=== PATIENT | female | born 1950 | race Caucasian/White ===

== ENCOUNTER → 2018-12-11 | Outpatient (CLI) | payer OTHER, MEDICARE ==
[~2018-12-11] MED LIST: BENADRYL25 MG PO; LISI5 PO; LOSHYD PO; METO50 PO; Pepcid20 MG PO; Prednisone20 MG PO
[2018-12-12 13:37] LABS: Stool Occult Bld Immuno 1 Negative (NEGATIVE)
== END | disposition home or self-care (01) ==
LOC: LAB SHORT 12:06 → LAB 12:06 → LAB FUT 11-18 09:00
PROVIDERS: Internal Medicine
DX: Z12.11 Encounter for screening for malignant neoplasm of colon (principal)
CPT/HCPCS: G0328

== ENCOUNTER 2019-07-17 07:26 | Day surgery (SDC) | payer OTHER, MEDICARE ==
[~2019-07-17 07:26] MED LIST changes: +ACET325 PO; +DOCU100 PO; +FAMO40; +FURO20; +Florastor250 MG PO; +GAVILAX17 GM PO; +HYDR1TAB94 PO; +LEVO750; +LIDO700A20 TOP; +METO25 PO; +ONDA4 PO; +Oyster Shell C500 MG; +XARELTO15 MG PO
== END 2019-07-17 11:55 | disposition home or self-care (01) ==
LOC: ATC 07:26
PROC: 30243N1 Transfusion of Nonautologous Red Blood Cells into Central Vein, Percutaneous Approach (ICD-10-PCS; principal; 2019-07-17)
DX: D64.9 Anemia, unspecified (principal); C25.0 Malignant neoplasm of head of pancreas; C78.7 Secondary malignant neoplasm of liver and intrahepatic bile duct; I10 Essential (primary) hypertension; M41.9 Scoliosis, unspecified; Z87.891 Personal history of nicotine dependence; Z86.718 Personal history of other venous thrombosis and embolism; Z86.711 Personal history of pulmonary embolism; Z88.0 Allergy status to penicillin; Z88.8 Allergy status to other drugs, medicaments and biological substances; Z79.01 Long term (current) use of anticoagulants; Z79.899 Other long term (current) drug therapy
CPT/HCPCS: 36415; 36430; 86850; 86900; 86901; 86923; J7050; P9016

== ENCOUNTER 2019-07-18 17:37 | Inpatient (IN) | payer OTHER, MEDICARE ==
[~2019-07-18] VITALS: Ht 154.9 cm; Wt 48.5 kg
[2019-07-18 18:12] LABS: BASOPHILS ABSOLUTE AUTO 0.04 K/mm3 (0.00-0.23); BASOPHILS PERCENT AUTO 0 % (0-2); EOSINOPHILS ABSOLUTE AUTO 0.13 K/mm3 (0.00-0.68); EOSINOPHILS PERCENT AUTO 1 % (0-6); Hematocrit 33.9 % (33.0-51.0); Hemoglobin 10.5 g/dL (11.5-16.0); IMMATURE GRAN ABSOLUTE AUTO 0.47 K/mm3 (0.00-0.10); IMMATURE GRAN PERCENT AUTO 2 % (0-1); LYMPHOCYTES ABSOLUTE AUTO 1.01 K/mm3 (0.84-5.20); LYMPHOCYTES PERCENT AUTO 5 % (21-46); MONOCYTES ABSOLUTE AUTO 1.83 K/mm3 (0.16-1.47); MONOCYTES PERCENT AUTO 9 % (4-13); Mean Corpuscular HGB 29.7 pg (26.0-34.0); Mean Platelet Volume 10.1 fL (9.1-12.4); NEUTROPHILS ABSOLUTE AUTO 17.38 K/mm3 (1.96-9.15); NEUTROPHILS PERCENT AUTO 83 % (41-73); NRBC ABSOLUTE 0.02 K/mm3 (0.00-0.02); NRBC Auto 0.1 /100 WBC (0.0-0.2); Platelet Count 421 K/mm3 (150-400); RDW Coefficient Variation 18.9 % (11.7-14.2); RDW Standard Deviation 62.2 fL (35.1-46.3); Red Blood Cell Count 3.53 M/mm3 (3.80-5.20); White Blood Cell Count 20.86 K/mm3 (4.00-11.30)
[2019-07-18 18:15] LABS: Mean Corpuscular Volume 96 fL (80-100)
[2019-07-18 18:29] LABS: Albumin/Globulin Ratio 0.5 (0.8-1.8); Bilirubin, Total 0.9 mg/dL (0.1-1.0); Bun/Creatinine Ratio 21.6 (12.0-20.0); Calcium, Blood 8.9 mg/dL (8.5-10.1); Creatinine, Blood 1.34 mg/dL (0.40-1.00); Potassium, Blood 3.5 mmol/L (3.5-5.5)
[2019-07-18 22:24] LABS: International Normalized Ratio 1.37; Prothrombin Time Results 14.1 Sec (9.7-11.5)
[2019-07-19 04:48] LABS: Hematocrit 24.4 % (33.0-51.0); Hemoglobin 7.5 g/dL (11.5-16.0); Mean Corpuscular HGB 30.4 pg (26.0-34.0); Mean Corpuscular HGB Conc 30.7 g/dL (31.5-36.5); Mean Corpuscular Volume 99 fL (80-100); Mean Platelet Volume 10.5 fL (9.1-12.4); NRBC ABSOLUTE 0.02 K/mm3 (0.00-0.02); NRBC Auto 0.1 /100 WBC (0.0-0.2); Platelet Count 264 K/mm3 (150-400); RDW Coefficient Variation 18.4 % (11.7-14.2); RDW Standard Deviation 62.9 fL (35.1-46.3); Red Blood Cell Count 2.47 M/mm3 (3.80-5.20); White Blood Cell Count 17.74 K/mm3 (4.00-11.30)
[2019-07-19 05:10] LABS: Albumin/Globulin Ratio 0.7 (0.8-1.8); Bilirubin, Total 0.7 mg/dL (0.1-1.0); Bun/Creatinine Ratio 22.1 (12.0-20.0); Creatinine, Blood 1.31 mg/dL (0.40-1.00); Globulin, Blood 2.9 g/dL (2.2-4.0); Total Protein, Blood 4.9 g/dL (6.4-8.2)
--- NOTE | 2019-07-19 07:18 | NUR ---
Patient slept intermittently overnight. She had 2 dark-colored liquid emesis, and PRN nausea medication was utilized. Monitoring H&H for acute changes. Blood ordered for low hgb this AM.
--- NOTE | 2019-07-19 07:58 | NUR ---
NURSE IN TO ASSESS PATIENT AT 0735. VS MEASURED IN PREP FOR BLOOD ADMINISTRATION PER ORDER. PT HAS CRACKLES IN BASES AND 4+ PITTING EDEMA IN HER BLE. CHARGE NURSE NOTIFIED OF VS AND FINDINGS. DR PLAZA CALLED AT 0757 AND NOTIFIED OF DROP IN HBG AND HCT AND ASSESSMENT FINDINGS. DR PLAZA REVIEWING CHART AT THIS TIME.
[2019-07-19 08:13] LABS: Source, Urine Clean Catch
[2019-07-19 08:15] LABS: Bilirubin, Urine Neg (Neg); Blood, Urine Neg (Neg); Glucose Qualitative, Urine Neg (Neg); Ketones, Urine 1+ (Neg); Leukocyte Esterase, Urine Neg (Neg); Nitrite, Urine Neg (Neg); Protein, Urine 2+ (Neg); Urobilinogen, Urine NORM (Normal)
[2019-07-19 08:18] LABS: Appearance, Urine Clear (Clear); Color, Urine Yellow (P-Yellow)
[2019-07-19 08:25] LABS: Bacteria Mod /hpf; Red Blood Cells, Urine Not Seen /hpf (0-2); Renal Epithelial Rare /hpf (0-Rare); Squamous Epithelial Cells Many /hpf (Few); Transitional Epithelial Cells Few /hpf (0-Rare); White Blood Cells, Urine Rare /hpf (0-5)
[2019-07-19 08:26] LABS: Amorphous Light (0-Heavy); Granular Casts 0-2 /lpf (0)
[2019-07-19 09:58] LABS: Hematocrit 24.4 % (33.0-51.0); Hemoglobin 7.5 g/dL (11.5-16.0)
--- NOTE | 2019-07-19 12:58 | NUR ---
Initial Visit: Palliative Care Consult for End Stage and Comfort Care. Spoke with Dr Callejas and discussed case. Pt has metastic pancreatic cancer with uncontroled pain. Pt placed on comfort care and plan is start pain pump for pain management. Fentanyl Patch ordered and plan is to hopefully wean Pt off pump once long acting pain medication becomes effectice. Pt is A&O and reports 6/10 pain in her abdomen. Pt reports mild anxiety and mild dyspnea. Engaged in therapeutic discussion regarding goals of care. Pt reports living at home with her and son. Listened as she reports not wanting to pursue any cancer treatments. Educated on hospice philsosphy wit V/U made by Pt. Discussed the possibility of future need with assistance of care. Discussed speaking with friends and family to help with care if needed. Discussed considering in home caregivers. Pt appears anxious throughout the visit and she reports significant heart burn. Palliative Care will F/U with Pt when is present. Ended visit to allow Pt to rest. Gave Pt brochures for different hospice agencies. Placed order for Protonix 40mg IV now and Protonix 40mg BID and D/C Protonix AB per V/O from Dr Callejas. Spoke with bedside CHENCHO Cordova and discussed case. Will place hospice referral and Palliative Care will remain available for symptom management.
--- NOTE | 2019-07-19 18:44 | NUR ---
SHIFT SUMMARY PT TRANSITIONED TO COMFORT CARE THIS SHIFT. PRIOR TO THAT PT RECIEVED 1 UNIT PRBC PER ORDER. OVEN DUMPER INFUSING PER ORDERS. SET UP AND VERIFIED WITH CHARGE NURSE. PT UP WITH 1 ASSIST. PT STATED PAIN IS WELL CONTROLLED AT THIS TIME. PT TOLERATING POPSICLES AND ICE BUT STATES THAT SHE IS "BURPING UP BILE." BED IN LOW POSITION, CALL LIGHT WITHIN REACH.
--- NOTE | 2019-07-19 20:04 | NUR ---
Patient appears to be sleeping comfortably at this time.
--- NOTE | 2019-07-19 23:06 | NUR ---
Patient states she has no pain at the moment. 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
--- NOTE | 2019-07-20 05:04 | NUR ---
Shift Summary Patient slept well overnight. She requested nausea medication one time, and this was effective. No emesis or abdominal pain overnight. SHOER running at basal rate. She has not pushed the button for additional pain control. She remians A&O, pleasant and cooperative.
--- NOTE | 2019-07-20 05:23 | NUR ---
Patient states she is comfortable. She is able to make needs known, and states she will request help if needed. Pain is well controlled with SALES AND EVENTS COORDINATOR.
--- NOTE | 2019-07-20 05:24 | NUR ---
PRN zofran was effective for nausea
--- NOTE | 2019-07-20 07:41 | NUR ---
SHOTGUN SHELL REPRINTING UNIT OPERATOR INFUSING. DENIES ANY PAIN AT THIS TIME. ALERT. [facility]
--- NOTE | 2019-07-20 07:56 | NUR ---
Patient denies pain at this time. Ice chips provided per Pt request.
--- NOTE | 2019-07-20 16:06 | NUR ---
Spiritual Care inital note: Mrs. Meadows appears frail and very weak. She awakend easily to voice, but could not stay awake. She wanted prayer and I happily complied. Her spouse, Jose was at bedside. He appeared guarded and protective of Erica. He dimissed me immediately after prayer. I will remain available.
--- NOTE | 2019-07-20 17:52 | NUR ---
PATIENT ALERT, BUT FORGETFUL. MOVES OFTEN IN BED, SO DOES NOT HAVE TO BE TURNED. USES BAILIFF AND HAS DENIED PAIN TO THIS RN. MEDICATED FOR NAUSEA. DISCUSSED BLOOD TRANSFUSION WITH PATIENT AND AT THIS TIME HAS NOT MADE A DECISION TO WHETHER SHE WANTS TRANSFUSION. WAS ADVISED MAY HELP HER BREATHING. OXYGEN ON INTERMITTENTLY. COOPERATIVE. IN OFTEN.SEEMS OVERWHELMED. WAS IN AND ADVISED PATIENT TO BE ON HOSPICE. AWARE OF THIS. PALLIATIVE CARE AND CARE MANAGEMENT ALSO AWARE. BEBO.
--- NOTE | 2019-07-20 21:21 | NUR ---
pt resting comfortably with in the room after requested roxanol. no other requests or complaints at this time.
--- NOTE | 2019-07-20 22:11 | NUR ---
PT AWAKE AGAIN. NO NEEDS AT THIS TIME. ONLY REQUEST WAS ICE CHIPS.
--- NOTE | 2019-07-21 02:38 | NUR ---
PT ASKED FOR PAIN MEDICATION TO MAKE HER COMFORTABLE. PT ENCOURAGED TO PRESS METAL BUMPER BUTTON FOR PAIN MEDICATION. PT INSISTED THAT SHE HAD BEEN BUT METAL BUMPER READ 0 ATTEMPTS AND 0 DELIVERIES. EDUCATED PT AND SHE PRESSED HER BUTTON WHILE RN IN ROOM AND IT REGISTERED THE 1 ATTEMPT. PT ENCOURAGED TO USE HER METAL BUMPER.
--- NOTE | 2019-07-21 05:42 | NUR ---
SHIFT SUMMARY PT DID NOT SLEEP WELL OVERNIGHT. AOX4 WITH INTERMITTENT CONFUSION. ROXANOL GIVEN @ 2049 AND PT SAID SHE DID NOT LIKE HOW IT MADE HER FEEL, DISLIKED SIDE EFFECTS. O2 NEEDED, PT WAS ON RA MOST OF THE NIGHT. MEDIPORT INFUSING. SLOOP CAPTAIN EDUCATION PROVIDED, PT C/O PAIN BUT HAD NOT BEEN PRESSING HER SLOOP CAPTAIN BUTTON. AFTER SOME EDUCATION PT SEEMS TO BE UNDERSTANDING HOW TO USE SLOOP CAPTAIN. BED ALARM FOR SAFETY, PT DOES NOT CALL. WAITING FOR DR MCCONNELL'S EVAL. PLAN IS HOME WITH HOSPICE, UNSURE OF WHEN.
--- NOTE | 2019-07-21 09:57 | NUR ---
Pt visit this AM. Pt up walking with her and then sits in her chair. Pt appears moderately confused and anxious. Listened as Pt and expresses concerns regarding the length of time she has remaining. Pt expresses wishes that she has only days to live. pressess Pt's HEALTHCARE CONSULTANT button to administer medication. Educated that Pt must push the button and no one else. She expresses concerns about going home. Validated Pt's and husbands concerns. Educated on the support Pt and family will receive from hospice. Pt and report feeling more at ease with Pt stating "It helps to talk about it". Pt is agreeable with taking Ativan to help with anxiety. No other concerns reported at this time. Pt appears to be experiencing terminal restlessness and is in the transition phase of her disease. Spoke with bedside RN Madeline and discussed case. Spoke with Dr Preston and discussed case. Dr Preston will order Ativan and increase Fentanyl Patch dose. Plan is to start offering PO medications more frequently to wean Pt off HEALTHCARE CONSULTANT. Palliative Care will remain available for symptom management.
--- NOTE | 2019-07-21 13:10 | NUR ---
PATIENT WITH LONG PAUSES IN BREATHING, RESPIRATIONS AT ABOUT 6/MIN. BLOOD PRESSURE SYSTOLIC IN 70'S. SATS DIP TO 40'S. CALLED TO VERIFY IF WE REALLY WANT TO GIVE BLOOD. STS WILL COME SEE PATIENT. BLOOD TRANSFUSION CANCELLED PER MD. MD DISCUSS SITUSTION WITH SИрина ANGLIN
--- NOTE | 2019-07-21 15:23 | NUR ---
IVET PAIZARCHITECTURAL RENDERER AND KATIE SPIRITUAL CARE IN TO SEE PATIENT. WCBEBO
--- NOTE | 2019-07-21 15:26 | NUR ---
Pt visit this afternoon. Pt is resting in bed with her eyes closed and is non responsive at this time. Pt's and Pt's long time friend at bedside. Pt's respiratory rate is 6/min with periods of 10 to 12 seconds of apnea. Pt appears to have transitioned into actively dying stage. reports no concerns at this time and appears at peace with Pt's condition. Spoke with bedside RN Madeline discussed case including considering D/C of Pt's GREENHOUSE OR NURSERY TRANSPLANTER basal rate. Palliative Care will remain available for symptom management and therapeutic visits.
--- NOTE | 2019-07-21 17:03 | NUR ---
TALKED TO ABOUT D'C PRODUCTION SUPPORT DEVELOPER AND ORDERING DILAUDID 0.5-1MG IV PRN Q 4 HOURS. STS CALL PHARM AND SEE WHAT THEY RECOMMEND WITH WHAT SHE HAS BEEN GETTING VIA PRODUCTION SUPPORT DEVELOPER. ELLEN IN PHARM STS 0.5-1 MG IV Q 3-4 AND PER OK TO ORDER.
--- NOTE | 2019-07-21 17:20 | NUR ---
Pt resting in bed with her eyes closed and is non responsive. Pt appears comfortable with no S/S of distress at this time. Pt's respirations 10/min. at bedside a reports plan to go home for the night. No concerns reported at this time. Spoke with bedside RN Madeline and collaborated on D/C of PRISONER CLASSIFICATION INTERVIEWER pump. Madeline reports plan to call hospitalist to request D/D of PRISONER CLASSIFICATION INTERVIEWER pump and to added dilaudid PRN. Palliative Care will remain available.
--- NOTE | 2019-07-21 17:50 | NUR ---
Spiritual Care routine note: Erica appears to be actively dying. Breaths are shallow and uneven. Long pauses. she is non-responsive to voice/touch. Provided prayer and gentle middle school counselor with , Jose, at bedside. Listened to their story. Affirmed obvious love. I will remain available.
--- NOTE | 2019-07-21 23:10 | NUR ---
AND SON IN ROOM. PT APPEARS COMFORTABLE.
--- NOTE | 2019-07-22 04:08 | NUR ---
SHIFT SUMMARY PT WAS NOT RESPONDING AT THE BEGINNING OF THE SHIFT. AROUND 0200 SHE STARTED TO SIT UP IN BED AND WAS ABLE TO ANSWER SIMPLE QUESTIONS. (PAIN? MORE PILLOWS? TOO HOT/COLD? ETC) PT SEEMS COMFORTABLE MOST OF THE TIME. ROXANOL GIVEN @ 2230, 0115, AND 0300 WHEN PT STARTED TO GET RESTLESS AND MOAN. PT REMOVED GOWN AND ATTENDS AND WONT KEEP THEM ON. COVERED PT WITH LIGHT SHEET. WILL CONTINUE TO MONITOR FOR COMFORT. PT RESTING AT THIS TIME.
--- NOTE | 2019-07-22 05:36 | NUR ---
PT WAS ASKED IF SHE NEEDED SOMETHING FOR PAIN/NAUSEA/ANXIETY/COMFORT, PT SAID NOT RIGHT NOW AND TO COME BACK IN 10MIN.
--- NOTE | 2019-07-22 05:52 | NUR ---
PT REPOSITIONED IN BED. PT DOES NOT WANT GOWN OR MEDICATIONS. TOLD RN TO LEAVE THE ROOM.
--- NOTE | 2019-07-22 09:01 | NUR ---
Clinical Visit: Pt appears to be actively dying. Hands and feet are cool, shortness of breath. She has just had a dose of roxanol. She may need more frequent ativan if she continues to be restless. Nurse reports that she was very uncomfortable at begining of shift and ativan helped. Concerns of yesterday include that the pt was too sedated by medications and therefore this was cut back. Will stay in contact with nursing to determine if pt needs additional medications. FILM CUTTER was discontinued - pt may need a dose of dilaudid to help cover pain symptoms. It would be inappropriate to try and move this pt at this time as she is actively dying. Recommend keeping pt here for duration of pt's dying process.
--- NOTE | 2019-07-22 09:19 | NUR ---
PATIENT PASSED AT 0903 WITH AT BEDSIDE. NO RESPIRATIONS OR PULSE ASSESSED BY [address] CHAND NOTIFED.
--- NOTE | 2019-07-22 09:28 | NUR ---
Follow up visit with . Pt has peacefully. He would like just a little bit of time with her. He is aware that the only thing we need from him at this time is the name of a home. No other concerns at this time. He will call his son when he is ready.
--- NOTE | 2019-07-22 12:22 | NUR ---
MARKELL FROM [facility] HERE TO GET PATIENT.
== END 2019-07-22 09:03 | DRG 435 ==
LOC: ER 17:37 → MEDS 21:10
PROVIDERS: Internal Medicine; Physician Assistant; ADMIT Internal Medicine
DX: C25.9 Malignant neoplasm of pancreas, unspecified (principal); K85.90 Acute pancreatitis without necrosis or infection, unspecified; E43 Unspecified severe protein-calorie malnutrition; N17.9 Acute kidney failure, unspecified; C78.7 Secondary malignant neoplasm of liver and intrahepatic bile duct; R64 Cachexia; Z51.5 Encounter for palliative care; I10 Essential (primary) hypertension; E86.0 Dehydration; E87.6 Hypokalemia; M41.9 Scoliosis, unspecified; I95.9 Hypotension, unspecified; R06.81 Apnea, not elsewhere classified; Z86.711 Personal history of pulmonary embolism; Z86.718 Personal history of other venous thrombosis and embolism; Z68.20 Body mass index [BMI] 20.0-20.9, adult
CPT/HCPCS: 36415; 36430; 74176; 80053; 81001; 83690; 83735; 85014; 85018; 85025; 85027; 85610; 85730; 86850; 86900; 86901; 86923; 96361; 96374; 96375; 99284-25; C9113; J0780; J1170; J1200; J1642; J1644; J2405; J2765; J3010; J7030; J7040; P9016; P9046